=== PATIENT | female | born 1960 | race Caucasian/White ===

== ENCOUNTER 2018-05-22 01:21 | Emergency (ER) | payer MEDICARE ==
--- NOTE | 2018-05-22 01:27 | ED Physician Documentation ---
PD HPI ABD PAIN - Stated complaint Stated Complaint: ABDOMINAL PAIN - History obtained from History obtained from: Patient - History of Present Illness Timing - onset: How many hours ago (2-3) Timing - duration: Hours (2-3) Timing - details: Abrupt onset, Still present Quality: Cramping, Aching, Fullness/distended, Pain Location: All over / everywhere Radiation: No: Chest, Lower back Improved by: No: Position Worsened by: Eating, Moving, Palpation Associated symptoms: Nausea. No: Fever, Vomiting, Diarrhea, Melena Similar symptoms before: Diagnosis (bowel obstructions due to multiple abd surgeries) Recently seen: Not recently seen (last episode about 2 years ago) Review of Systems Constitutional: denies: Fever, Myalgias Nose: denies: Rhinorrhea / runny nose, Congestion Throat: denies: Sore throat Respiratory: denies: Cough GI: reports: Abdominal Pain, Nausea. denies: Vomiting (says can't vomit due to prior fundoplication), Constipation (last BM yesterday), Diarrhea, Bloody / black stool : denies: Dysuria Skin: denies: Rash, Lesions Musculoskeletal: denies: Neck pain, Back pain Neurologic: reports: Generalized weakness. 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) - Past Surgical History General: Cholecystectomy, Appendectomy, Bowel surgery, Other (fundoplication) - Allergies Allergies/Adverse Reactions: Allergies Allergy/AdvReac Type Severity Reaction Status Date / Time pregabalin [From Lyrica] Allergy Unknown Verified 05/22/18 01:35 - Living Situation Living Arrangement: reports: At home - Family History Family history: reports: Non contributory PD ED PE NORMAL - Vitals Vital signs reviewed: Yes - General General: Alert and oriented X 3, Well developed/nourished, Other (appears in pain) - HEENT HEENT: Pharynx benign - Neck Neck: Supple, no meningeal sign, No adenopathy - Cardiac Cardiac: RRR, No murmur - Respiratory Respiratory: Clear bilaterally - Abdomen Abdomen: No organomegaly, Other (diffuse tenderness, firm with some distension.) . No: Normal bowel sounds (increased) - Female Female : Deferred - Rectal Rectal: Deferred - Back Back: No CVA TTP - Derm Derm: No: Normal color (pale with diaphoresis) - Neuro Neuro: Alert and oriented X 3, No motor deficit, Normal speech Results - Vitals Vitals: Vital Signs - 24 hr 05/22/18 05/22/18 05/22/18 01:25 01:45 03:00 Temperature 36.6 C Heart Rate 55 L 82 78 Respiratory 24 16 18 Rate Blood Pressure 135/91 H 140/83 H 133/86 H O2 Saturation 99 93 84 L 05/22/18 05/22/18 05/22/18 03:30 03:52 04:02 Temperature Heart Rate 85 80 82 Respiratory 32 H 22 28 H Rate Blood Pressure 128/102 H 120/93 H 134/93 H O2 Saturation 94 95 96 05/22/18 05/22/18 05/22/18 04:24 04:34 04:50 Temperature Heart Rate 83 88 85 Respiratory 25 H 21 19 Rate Blood Pressure 107/97 H 153/98 H 158/108 H O2 Saturation 91 L 92 99 05/22/18 05:07 Temperature Heart Rate 93 Respiratory 14 Rate Blood Pressure 152/107 H O2 Saturation 99 Oxygen O2 Source Nasal cannula - Labs Labs: Laboratory Tests 05/22/18 05/22/18 05/22/18 01:30 01:30 01:46 WBC 9.0 RBC 4.75 Hgb 14.1 Hct 42.0 MCV 88.5 MCH 29.8 MCHC 33.6 RDW 14.1 Plt Count 280 MPV 8.4 Neut # (Auto) 5.5 Lymph # (Auto) 2.4 Villalba # (Auto) 0.6 Eos # (Auto) 0.3 Baso # (Auto) 0.1 Absolute Nucleated RBC 0.00 Nucleated RBC % 0.0 Sodium 140 Potassium 3.6 Chloride 106 Carbon Dioxide 23 Anion Gap 11.0 BUN 23 H Creatinine 1.1 H Estimated GFR (MDRD) 52 L Glucose 162 H Lactic Acid 1.9 Calcium 9.8 Total Bilirubin 0.6 AST 97 H ALT 46 Alkaline Phosphatase 88 Total Protein 8.0 Albumin 4.7 Globulin 3.3 Albumin/Globulin Ratio 1.4 Lipase 950 H - Rads (name of study) abd CT Radiology: Prelim report reviewed (bowel obstruction with free air; also right PTX), Discussed with rads, EMP read contemporaneously chest xray Radiology: Prelim report reviewed, Discussed with rads (still PTX and NG tube high at GE junction) chest Radiology: Prelim report reviewed, EMP read contemporaneously (expanded right lung; NG tube in location in stomach) Procedures - Chest Tube (location) right 5th middle axillary line Chest tube preparation: Consent obtained, Time out completed, Sterile prep and drape Chest tube location: Right, Mid axillary line Chest tube anesthesia: Lidocaine, CC (enter) (8) Chest tube return: Air Chest tube after care: Sutured, Confirmed with xray, Pt tolerated well PD MEDICAL DECISION MAKING - ED course Complexity details: considered differential (Symptoms consistent with bowel obstruction and she is in severe pain. IV access is obtained and she is given antiemetic and pain medication. CT scan is obtained and shows a bowel obstruction pattern with free air consistent with perforated viscus. She also has a right pneumothorax of small to mild size. NG tube is placed and preparation is made for chest tube which is done after discussion with the patient and consent obtained verbally from her and her . The patient's condition improves with less pain and she is resting moderately comfortably after the chest tube and NG tube are placed. Her vitals remained stable with a blood pressure 135/91 and the heart rate remains 100 under 100. I do feel she is stable for trans-for. I talked with surgery on-call at our facility who felt the patient was beyond the capacity of our critical access facility. Transfer was arranged to [facility].), d/w patient, d/w end user consultant (Dr. Bañuelos, surgery here, who defers to larger facility (out of scope for critical access).), other (I talked with the patient and she has been [facility], but they did not have facility available for her. Patient has been to [facility] previously and requested their location. I talked with the surgeon on- call as well as the senior professional services consultant Dr. Van who accepted transfer. The patient will be flown there.) - Critical Care Time(min): 60 Time Includes: Direct patient care, Reassess patient, Document care, Coordinate care, See progress note Data interpretation: Labs, CXR Procedures included in critical care time: Gastric intubation Procedures excluded from critical care time: Chest tube - Sepsis Event Vital Signs: Vital Signs - 24 hr 09/11/0705/22/18 05/22/18 01:25 01:45 03:00 Temperature 36.6 C Heart Rate 55 L 82 78 Respiratory 24 16 18 Rate Blood Pressure 135/91 H 140/83 H 133/86 H O2 Saturation 99 93 84 L 05/22/18 05/22/18 05/22/18 03:30 03:52 04:02 Temperature Heart Rate 85 80 82 Respiratory 32 H 22 28 H Rate Blood Pressure 128/102 H 120/93 H 134/93 H O2 Saturation 94 95 96 05/22/18 05/22/18 05/22/18 04:24 04:34 04:50 Temperature Heart Rate 83 88 85 Respiratory 25 H 21 19 Rate Blood Pressure 107/97 H 153/98 H 158/108 H O2 Saturation 91 L 92 99 05/22/18 05:07 Temperature Heart Rate 93 Respiratory 14 Rate Blood Pressure 152/107 H O2 Saturation 99 Oxygen O2 Source Nasal cannula Departure - Departure Disposition: 02 Transfer Acute Care Hosp Clinical Impression: Small bowel obstruction, Perforated abdominal viscus, Pneumothorax, right Condition: Critical Record reviewed to determine appropriate education?: Yes
[2018-05-22] MEDS ORDERED: ACETAMINOPHEN 1,000 MG/100 ML 100 ML IV STA (01:32)
[2018-05-22] MEDS ORDERED: METOCLOPRAMIDE 10 MG/2 ML VIAL IVP STA ×2 (01:32→03:53)
[2018-05-22] MEDS ORDERED: SODIUM CHLORIDE 0.9% 1,000 ML IV ONE ×2 (01:32→03:54)
[2018-05-22] MEDS ORDERED: HYDROmorphone 2 MG/ML VIAL IVP STA (01:32)
[2018-05-22] MEDS ORDERED: IOPAMIDOL-300 100 ML VIAL ONE (01:42)
[2018-05-22 01:43] LABS: BASOPHILS # (AUTO) 0.1 10^3/uL (0.0-0.1); BASOPHILS % (AUTO) 1.7 %; EOSINOPHILS # (AUTO) 0.3 10^3/uL (0.0-0.7); EOSINOPHILS % (AUTO) 3.7 %; HGB - HEMOGLOBIN 14.1 g/dL (12.0-16.0); LYMPHOCYTES # (AUTO) 2.4 10^3/uL (1.5-3.5); LYMPHOCYTES % (AUTO) 26.5 %; MEAN CORPUSCULAR HEMOGLOBIN 29.8 pg (27.0-31.0); MEAN CORPUSCULAR HGB CONC 33.6 g/dL (32.0-36.0); MEAN CORPUSCULAR VOLUME 88.5 fL (81.0-99.0); MEAN PLATELET VOLUME 8.4 fL (7.9-10.8); MONOCYTES # (AUTO) 0.6 10^3/uL (0.0-1.0); MONOCYTES % (AUTO) 6.6 %; NEUTROPHILS # (AUTO) 5.5 10^3/uL (1.5-6.6); NEUTROPHILS % (AUTO) 61.5 %; PLT - PLATELET COUNT 280 10^3/uL (130-450); RED BLOOD COUNT 4.75 10^6/uL (4.20-5.40); RED CELL DISTRIBUTION WIDTH 14.1 % (12.0-15.0)
[2018-05-22] MEDS ORDERED: HYDROmorphone 1 MG/ML CARPUJECT IVP STA ×4 (01:53→06:16)
[2018-05-22] MEDS ORDERED: LORazepam 2 MG/ML VIAL IVP STA (02:17)
[2018-05-22 02:25] LABS: ALBUMIN 4.7 g/dL (3.2-5.5); ALBUMIN/GLOBULIN RATIO 1.4 (1.0-2.2); BILIRUBIN,TOTAL 0.6 mg/dL (0.2-1.0); CALCIUM 9.8 mg/dL (8.5-10.3); CREATININE 1.1 mg/dL (0.4-1.0)
[2018-05-22] MEDS ORDERED: IOPAMIDOL-300 100 ML VIAL IVP ONE (02:47)
[2018-05-22] MEDS ORDERED: LIDOCAINE JELLY 2% 5 ML TUBE TOP STA (03:06)
--- NOTE | 2018-05-22 03:07 | CT Report ---
Reason: abd pain; possible bowel obstruction Procedure Date: 05/22/2018 Accession Number: [id number] / [id number] Procedure: CT - Abdomen/Pelvis W/ CPT Code: FULL RESULT: EXAM: CT ABDOMEN AND PELVIS EXAM DATE: 05/22/2018 02:44 AM. CLINICAL HISTORY: Abdominal pain, possible bowel obstruction. COMPARISONS: None. TECHNIQUE: Routine helical CT imaging was performed through the abdomen and pelvis. IV contrast: Yes . Enteric contrast: No . Reconstructions: Coronal and sagittal. In accordance with CT protocol optimization, one or more of the following dose reduction techniques were utilized for this exam: automated exposure control, adjustment of mA and/or KV based on patient size, or use of iterative reconstructive technique. FINDINGS: Lung Bases: At least small to moderate right pneumothorax. Pneumomediastinum present. No effusion. Liver: Branching extensive gas, likely combination of pneumobilia and portal venous gas. No suspicious masses. Gallbladder/Bile Ducts: Extensive pneumobilia as above. Patient appears to be status post cholecystectomy. Spleen: Unremarkable. Pancreas: Unremarkable. Adrenal Glands: Unremarkable. Kidneys: Unremarkable. No suspicious masses or hydronephrosis. Peritoneal Cavity/Bowel: Quite distended stomach and much of the small bowel with relatively decompressed small bowel loops in the left pelvis, concerning for obstruction. Moderate free air in the abdomen and pelvis of uncertain origin. There are long segments of small bowel pseudo-pneumatosis but there may be true pneumatosis as well given the presence of probable portal venous gas. Pelvic Organs: Bladder, uterus, and adnexa appear unremarkable. Vasculature: No aneurysms or other significant abnormality. Bones: No significant abnormality. Other: None. IMPRESSION: 1. Moderate pneumoperitoneum may be secondary to a complication from the distal small bowel obstruction with transition in the left pelvis. Exact site of perforation not clearly seen but typically upper abdominal/gastric with this extent. There is evidence of portal venous gas and possible areas of small bowel pneumatosis (most areas appear to be pseudo-pneumatosis) and bowel ischemia/infarction cannot be excluded. Surgical consultation suggested. 2. At least small to moderate right pneumothorax and pneumomediastinum, presumably tracking from under the diaphragm into the chest. 3. Extensive pneumobilia, likely related to previous sphincterotomy and gaseous reflux. RADIA The above findings were discussed with Sen Shields by Dr. Valeriano Ford at 03:06 hrs on 05/22/18.
[2018-05-22] MEDS ORDERED: AMPICILLIN/SULBACTAM 3 GM in SODIUM CHLORIDE 0.9% MINIBAG 100 ML IV STA (03:20)
--- NOTE | 2018-05-22 04:17 | XRAY Report ---
Reason: NG tube placement confirmation Procedure Date: 05/22/2018 Accession Number: [id number] / [id number] Procedure: XR - Chest 1 View X-Ray CPT Code: 79723 FULL RESULT: EXAM: CHEST RADIOGRAPHY EXAM DATE: 05/22/2018 03:59 AM. CLINICAL HISTORY: Nasogastric tube placement confirmation. COMPARISON: ABDOMEN/PELVIS W/ 05/22/2018 2:36 AM. TECHNIQUE: 1 view. FINDINGS: Lungs/Pleura: Large right pneumothorax, progressed from earlier CT abdomen. Mediastinum: Leftward shift of the mediastinum. Heart size normal. Other: Known upper abdominal pneumoperitoneum. Enteric tube tip coiled in the region of the gastroesophageal junction. IMPRESSION: 1. Large right tension pneumothorax. 2. Enteric tube tip coiled in the region of the gastroesophageal junction. 3. Known upper abdominal pneumoperitoneum. RADIA The above findings were discussed with Sen Shields by Dr. Valeriano Ford at 04:16 hrs on 05/22/18.
--- NOTE | 2018-05-22 05:13 | XRAY Report ---
Reason: chest tube placement Procedure Date: 05/22/2018 Accession Number: [id number] / [id number] Procedure: XR - Chest 1 View X-Ray CPT Code: 18873 FULL RESULT: EXAM: CHEST RADIOGRAPHY EXAM DATE: 05/22/2018 05:03 AM. CLINICAL HISTORY: Chest tube placement. COMPARISON: CHEST 1 VIEW 05/22/2018 3:48 AM. TECHNIQUE: 1 view. FINDINGS: Lungs/Pleura: New right chest tube projecting over the inferomedial aspect of the right hemithorax. Near complete resolution of the previous pneumothorax. Lungs grossly clear. Mediastinum: Resolved mediastinal shift. Heart size normal. Other: Subdiaphragmatic free air again noted. Enteric tube tip likely in the body of the stomach. IMPRESSION: 1. Essentially resolved right tension pneumothorax post chest tube placement. 2. Known subdiaphragmatic free air. 3. Enteric tube tip likely in the body of the stomach. RADIA
[2018-05-22 06:23] LABS: MUDS CUTOFF CONCENTRATIONS CUTOFF CONC BELOW:
[2018-05-22 06:29] LABS: BILIRUBIN,URINE NEGATIVE (NEGATIVE); GLUCOSE, URINE (UA) NEGATIVE (NEGATIVE); KETONES,URINE (UA) NEGATIVE (NEGATIVE); LEUKOCYTE ESTERASE, URINE NEGATIVE (NEGATIVE); NITRITE,URINE NEGATIVE (NEGATIVE); OCCULT BLOOD,URINE TRACE-INTA (NEGATIVE); PROTEIN,URINE TRACE mg/dL (NEGATIVE); UROBILINOGEN,URINE 0.2 (NORMAL) E.U./dL (NORMAL)
[2018-05-22 06:31] VITALS: BP 152/103
[2018-05-22 06:36] LABS: CLARITY,URINE CLEAR (CLEAR)
[2018-05-22 06:39] LABS: AMPHETAMINE SCREEN,URINE NEGATIVE (NEGATIVE); BENZODIAZEPINES SCREEN, URINE NEGATIVE (NEGATIVE); COCAINE SCREEN URINE NEGATIVE (NEGATIVE); METHADONE SCREEN, URINE POSITIVE (NEGATIVE); METHAMPHETAMINES SCREEN, URINE NEGATIVE (NEGATIVE); OPIATE SCREEN, URINE POSITIVE (NEGATIVE); OXYCODONE SCREEN, URINE NEGATIVE (NEGATIVE); PROPOXYPHENE SCREEN, URINE NEGATIVE (NEGATIVE); TRICYCLIC ANTIDEPRESSANT,URINE NEGATIVE (NEGATIVE)
== END 2018-05-22 06:52 | disposition short-term general hospital (02) ==
LOC: ED 01:21
DX: K56.609 Unspecified intestinal obstruction, unspecified as to partial versus complete obstruction (principal); J93.9 Pneumothorax, unspecified; K63.1 Perforation of intestine (nontraumatic)
CPT/HCPCS: 32551; 36415; 51702; 71045; 74177; 80053; 81003; 83605; 83690; 85025; 96361; 96365; 96367; 96375; 96376; 99291; J0131; J1170; J2060; J2765; J3490; Q9967; 80306; 81001; 87086; 99285

== ENCOUNTER 2018-05-22 06:47 | Outpatient (CLI) | payer MEDICARE | END 2018-05-22 06:48 | disposition short-term general hospital (02) | LOC: EMS 06:47 | PROVIDERS: ATTEND Surgery | DX: K56.609 Unspecified intestinal obstruction, unspecified as to partial versus complete obstruction (principal); K63.1 Perforation of intestine (nontraumatic); J93.9 Pneumothorax, unspecified ==